=== PATIENT | female | born 1985 | race Caucasian/White ===

== ENCOUNTER 2016-08-04 16:01 | Emergency (ER) | payer OTHER ==
[~2016-08-04] VITALS: Ht 162.6 cm; Wt 77.1 kg
--- NOTE | ~2016-08-04 | EKG ---
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
[~2016-08-04 16:01] MED LIST: AMOXICILLIN 50500 M1 PO; FLONASE 0.05%50 MCG NASAL; HYDROCODONE-AP1 EAC6 PO; IBUPROFEN 600600 M1 PO; IBUPROFEN 800800 M1 PO; LIDODERM 5%1 PATC1 TRANSDERM; NEURONTIN 300300 M1 PO; TOBRAMYCIN SULFA5 ML IO; ULTRAM 50MG TAB50 MG PO; VALACYCLOVIR1000 MG PO; VITAFOL-OB+DHA1 EACH PO; ZOFRAN ODT4 MG PO; ZOSTRIX HP56.6 G1 TP; ZPAK PO
[2016-08-04 16:07] VITALS: BP 135/84
[2016-08-04] MEDS ORDERED: XANAX 0.25 MG0.25 MG PO (16:42)
[2016-08-04] MEDS ORDERED: HYDROXYZINE HCL10 M2 PO (16:57)
== END 2016-08-04 18:15 | disposition home or self-care (01) ==
LOC: ER 16:01
DX: F41.9 Anxiety disorder, unspecified (principal); F10.99 Alcohol use, unspecified with unspecified alcohol-induced disorder

== ENCOUNTER 2017-12-02 02:38 | Emergency (ER) | payer OTHER ==
[~2017-12-02] VITALS: Ht 162.6 cm; Wt 77.1 kg
[~2017-12-02 02:38] MED LIST changes: +HYDROXYZINE HCL10 M2 PO; +XANAX 0.25 MG0.25 MG PO
[2017-12-02 02:48] VITALS: BP 122/81
[2017-12-02] MEDS ORDERED: FLAGYL500 MG PO (03:43)
[2017-12-02] MEDS ORDERED: BENADRYL25 MG PO (03:44)
== END 2017-12-02 03:59 | disposition home or self-care (01) ==
LOC: ER 02:38
DX: N76.0 Acute vaginitis (principal); R21 Rash and other nonspecific skin eruption; F41.9 Anxiety disorder, unspecified